=== PATIENT | male | born 1965 | race African-American/Black ===

== ENCOUNTER 2023-01-22 13:46 | Outpatient (REF) | payer MEDICAID, SELFPAY | END 2023-01-22 13:47 | disposition home or self-care (01) | LOC: HO.HHCLNP 13:46 | PROVIDERS: Visit Provider Family Medicine | DX: A63.0 Anogenital (venereal) warts (principal) | CPT/HCPCS: 88112 ==

== ENCOUNTER 2023-02-24 09:55 | Outpatient (REF) | payer MEDICAID, SELFPAY ==
[2023-02-24 11:18] LABS: MANUAL DIFF FLAG NO
[2023-02-24 11:40] LABS: Basophils Percent Auto 0.5 % (0-2); Eosinophils Absolute Auto 0.1 X10*3/uL (0.0-0.4); Eosinophils Percent Auto 1.8 % (0-4); Hematocrit 42.3 % (42.0-52.0); Hemoglobin 13.8 g/dl (14.0-18.0); Imm Gran Abs Auto 0.03 X10*3/uL (0.00-0.03); Imm Gran Pct Auto 0.5 % (0.0-0.4); Lymphocytes Absolute Auto 1.6 X10*3/uL (1.2-4.9); Lymphocytes Percent Auto 26.1 % (20-40); Mean Corpuscular HGB Conc 32.6 g/dl (31.0-36.0); Mean Corpuscular Hemoglobin 32.5 pg (27.0-33.0); Mean Corpuscular Volume 99.5 fL (80.0-98.0); Mean Platelet Volume 10.5 fL (9.4-12.4); Monocytes Absolute Auto 0.6 X10*3/uL (0.1-1.2); Monocytes Percent Auto 9.2 % (2-11); Neutrophils Absolute Auto 3.8 x10*3/uL (2.0-8.3); Neutrophils Percent Auto 61.9 % (45-73); Platelet Count 286 X10*3/uL (160-400); Red Blood Count 4.25 X10*6/uL (4.60-5.80); Red Cell Distribution Width 12.5 % (11.0-16.0); White Blood Count 6.2 X10*3/uL (4.8-10.8)
[2023-02-24 11:54] LABS: Estimated Average Glucose 100 mg/dL; Hemoglobin A1c % 5.1 % (<6.0)
[2023-02-24 12:11] LABS: Alanine Aminotransferase 13 U/L (0-40); Albumin Level 4.3 g/dL (3.5-5.0); Alkaline Phosphatase 67 U/L (39-117); Anion Gap 12 (12-20); Aspartate Amino Transferase 17 U/L (5-37); Bilirubin Total 0.3 mg/dL (0.0-1.0); Blood Urea Nitrogen 11 mg/dL (9-16); Calcium 9.5 mg/dL (8.4-10.2); Carbon Dioxide 27 mmol/L (22-29); Chloride 105 mmol/L (96-108); Estimated Glomerular Filt Rate > 60; Glucose Random 106 mg/dL (60-115); Potassium 4.1 mmol/L (3.3-5.1); Sodium 140 mmol/L (135-145); Total Protein 7.3 g/dL (6.5-8.0)
[2023-02-24 13:40] LABS: CT PCR NOT DETECTED (Not Detect.); NG PCR NOT DETECTED (Not Detect.)
[2023-02-25 11:53] LABS: Absolute CD3 Count 1255 cells/uL (840-3060); Absolute CD4 Count 906 cells/uL (490-1740); Absolute CD8 Count 334 cells/uL (180-1170); Absolute Lymphocytes 1599 cells/uL (850-3900); CD4 CD8 Ratio 2.71 (0.86-5.00); Percent CD3 Cells 78 % (57-85); Percent CD4 Cells 57 % (30-61); Percent CD8 Cells 21 % (12-42)
[2023-02-26 13:19] LABS: HIV RNA PCR Qn Copies 28 copies/mL (NOT DETECTED); HIV RNA PCR Qn Log Copies 1.45 (NOT DETECTED)
[2023-02-27 15:38] LABS: TS Negative Control Passed; TS Panel A 0; TS Panel B 0; TS Positive Control Passed; TSpotTB Negative (Negative)
== END 2023-02-24 09:56 | disposition home or self-care (01) ==
LOC: HO.HHCL 09:55
PROVIDERS: Visit Provider Student in an Organized Health Care Education/Training Program
DX: Z11.1 Encounter for screening for respiratory tuberculosis (principal); Z11.3 Encounter for screening for infections with a predominantly sexual mode of transmission; Z21 Asymptomatic human immunodeficiency virus [HIV] infection status
CPT/HCPCS: 0353U; 36415; 80053; 83036; 85025; 86359; 86360; 86481; 87536

== ENCOUNTER 2023-09-29 14:48 | Outpatient (REF) | payer MEDICAID, SELFPAY ==
[2023-09-29 16:16] LABS: MANUAL DIFF FLAG NO
[2023-09-29 16:30] LABS: Basophils Absolute Auto 0.1 X10*3/uL (0.0-0.2); Basophils Percent Auto 0.6 % (0-2); Eosinophils Absolute Auto 0.2 X10*3/uL (0.0-0.4); Eosinophils Percent Auto 1.7 % (0-4); Hematocrit 41.6 % (42.0-52.0); Hemoglobin 13.7 g/dl (14.0-18.0); Imm Gran Abs Auto 0.02 X10*3/uL (0.00-0.03); Imm Gran Pct Auto 0.2 % (0.0-0.4); Mean Corpuscular HGB Conc 32.9 g/dl (31.0-36.0); Mean Corpuscular Hemoglobin 32.4 pg (27.0-33.0); Mean Corpuscular Volume 98.3 fL (80.0-98.0); Mean Platelet Volume 10.2 fL (9.4-12.4); Monocytes Absolute Auto 0.6 X10*3/uL (0.1-1.2); Monocytes Percent Auto 7.3 % (2-11); Neutrophils Absolute Auto 5.8 x10*3/uL (2.0-8.3); Neutrophils Percent Auto 67.2 % (45-73); Platelet Count 250 X10*3/uL (160-400); Red Blood Count 4.23 X10*6/uL (4.60-5.80); Red Cell Distribution Width 13.2 % (11.0-16.0); White Blood Count 8.7 X10*3/uL (4.8-10.8)
[2023-09-29 17:04] LABS: Alanine Aminotransferase 18 U/L (0-40); Albumin Level 4.5 g/dL (3.5-5.0); Alkaline Phosphatase 63 U/L (39-117); Anion Gap 17 (12-20); Aspartate Amino Transferase 21 U/L (5-37); Bilirubin Direct 0.1 mg/dL (0.0-0.5); Bilirubin Total 0.3 mg/dL (0.0-1.0); Blood Urea Nitrogen 15 mg/dL (9-16); C Reactive Protein 0.57 mg/dL (< or = 0.50); Calcium 9.2 mg/dL (8.4-10.2); Carbon Dioxide 19 mmol/L (22-29); Chloride 107 mmol/L (96-108); Cholesterol 171 mg/dL (<200); Estimated Glomerular Filt Rate 56; Glucose Random 90 mg/dL (60-115); HDL Cholesterol 69 mg/dL (>40); LDL Cholesterol Calculated 60 mg/dL (<100); Magnesium 2.2 mg/dL (1.6-2.6); Sodium 139 mmol/L (135-145); Total Protein 7.7 g/dL (6.5-8.0); Triglycerides 214 mg/dL (<150)
[2023-09-29 17:08] LABS: Rheumatoid Factor < 13.0 IU/mL (<15.0)
[2023-09-29 17:20] LABS: TSH reflex Free T4 1.09 uIU/mL (0.32-4.0)
[2023-09-29 17:36] LABS: Erythrocyte Sedimentation Rate 6 MM/HR (0-15)
[2023-09-30 13:18] LABS: HIV RNA PCR Qn Copies 89 copies/mL (NOT DETECTED); HIV RNA PCR Qn Log Copies 1.95 (NOT DETECTED)
[2023-10-04 13:12] LABS: Testosterone, Total 410 ng/dL (250-1100)
[2023-10-04 14:13] LABS: Anti Nuclear Antibody Screen NEGATIVE (NEGATIVE)
[2023-10-05 21:53] LABS: Estradiol Ultra Sensitive 16 pg/mL (< OR = 29)
== END 2023-09-29 14:49 | disposition home or self-care (01) ==
LOC: HO.HHCL 14:48
PROVIDERS: Visit Provider Family Medicine
DX: R63.4 Abnormal weight loss (principal); M79.641 Pain in right hand; M79.642 Pain in left hand; M25.511 Pain in right shoulder; M25.512 Pain in left shoulder; F64.9 Gender identity disorder, unspecified; Z21 Asymptomatic human immunodeficiency virus [HIV] infection status
CPT/HCPCS: 36415; 80048; 80061; 80076; 82306; 82670; 83735; 84403; 84443; 85025; 85652; 86038; 86140; 86360; 86431; 87536

== ENCOUNTER 2024-07-05 | Outpatient (REF) | payer MEDICAID, SELFPAY ==
[2024-07-06 20:08] LABS: C. Trachomatis RNA TMA, Throat NOT DETECTED (NOT DETECTED); N. gonorrhoeae RNA TMA, Throat NOT DETECTED (NOT DETECTED)
== END 2024-07-05 00:01 | disposition home or self-care (01) ==
LOC: HO.LNP
PROVIDERS: Visit Provider Family Medicine
DX: Z11.3 Encounter for screening for infections with a predominantly sexual mode of transmission (principal)
CPT/HCPCS: 87491; 87591; 88112

== ENCOUNTER 2024-07-05 10:37 | Outpatient (REF) | payer MEDICAID, SELFPAY ==
[2024-07-05 11:17] LABS: MANUAL DIFF FLAG NO
[2024-07-05 11:22] LABS: Basophils Percent Auto 0.6 % (0-2); Eosinophils Absolute Auto 0.1 X10*3/uL (0.0-0.4); Eosinophils Percent Auto 0.9 % (0-4); Hematocrit 41.5 % (42.0-52.0); Hemoglobin 13.9 g/dl (14.0-18.0); Imm Gran Abs Auto 0.02 X10*3/uL (0.00-0.03); Imm Gran Pct Auto 0.3 % (0.0-0.4); Lymphocytes Absolute Auto 1.7 X10*3/uL (1.2-4.9); Lymphocytes Percent Auto 25.7 % (20-40); Mean Corpuscular HGB Conc 33.5 g/dl (31.0-36.0); Mean Corpuscular Volume 92.6 fL (80.0-98.0); Mean Platelet Volume 10.5 fL (9.4-12.4); Monocytes Absolute Auto 0.5 X10*3/uL (0.1-1.2); Monocytes Percent Auto 7.3 % (2-11); Neutrophils Absolute Auto 4.4 x10*3/uL (2.0-8.3); Neutrophils Percent Auto 65.2 % (45-73); Platelet Count 271 X10*3/uL (160-400); Red Blood Count 4.48 X10*6/uL (4.60-5.80); Red Cell Distribution Width 12.8 % (11.0-16.0); White Blood Count 6.7 X10*3/uL (4.8-10.8)
[2024-07-05 12:02] LABS: Alanine Aminotransferase 27 U/L (0-40); Albumin Level 4.6 g/dL (3.5-5.0); Alkaline Phosphatase 62 U/L (39-117); Anion Gap 13 (12-20); Aspartate Amino Transferase 36 U/L (5-37); Bilirubin Direct 0.2 mg/dL (0.0-0.5); Bilirubin Total 0.5 mg/dL (0.0-1.0); Blood Urea Nitrogen 19 mg/dL (9-16); Calcium 9.4 mg/dL (8.4-10.2); Carbon Dioxide 24 mmol/L (22-29); Chloride 105 mmol/L (96-108); Cholesterol 154 mg/dL (<200); Estimated Glomerular Filt Rate > 60; Glucose Random 89 mg/dL (60-115); HDL Cholesterol 69 mg/dL (>40); LDL Cholesterol Calculated 76 mg/dL (<100); Potassium 3.9 mmol/L (3.3-5.1); Sodium 138 mmol/L (135-145); Total Protein 7.3 g/dL (6.5-8.0); Triglycerides 45 mg/dL (<150)
[2024-07-05 12:17] LABS: Syphilis Screen Nonreactive (Nonreactive)
[2024-07-05 13:28] LABS: CT PCR NOT DETECTED (Not Detect.); NG PCR NOT DETECTED (Not Detect.)
[2024-07-06 16:08] LABS: HIV RNA PCR Qn Copies NOT DETECTED copies/mL (NOT DETECTED); HIV RNA PCR Qn Log Copies NOT DETECTED (NOT DETECTED)
[2024-07-06 19:54] LABS: C.Trachomatis RNA TMA, Rectal DETECTED (NOT DETECTED); N.Gonorrhoeae RNA TMA, Rectal NOT DETECTED (NOT DETECTED)
[2024-07-11 15:53] LABS: Absolute CD3 Count 1504 cells/uL (840-3060); Absolute CD4 Count 1099 cells/uL (490-1740); Absolute CD8 Count 459 cells/uL (180-1170); Absolute Lymphocytes 1803 cells/uL (850-3900); CD4 CD8 Ratio 2.39 (0.86-5.00); Percent CD3 Cells 83 % (57-85); Percent CD4 Cells 61 % (30-61); Percent CD8 Cells 25 % (12-42)
[2024-07-13 23:37] LABS: HIV 1 Integrase Proviral DNA DETECTED; HIV 1 PR RT Proviral DNA DETECTED
== END 2024-07-05 10:38 | disposition home or self-care (01) ==
LOC: HO.HHCL 10:37
PROVIDERS: Student in an Organized Health Care Education/Training Program; Visit Provider Family Medicine
DX: Z21 Asymptomatic human immunodeficiency virus [HIV] infection status (principal); E78.5 Hyperlipidemia, unspecified; Z11.3 Encounter for screening for infections with a predominantly sexual mode of transmission
CPT/HCPCS: 36415; 80053; 80061; 80076; 82248; 85025; 86359; 86360; 86780; 87491; 87536; 87591; 87900; 87901; 87906